=== PATIENT | male | born 1935 | race Caucasian/White ===

== ENCOUNTER 2016-06-07 15:22 | Observation (INO) | payer MEDICARE, OTHER ==
[~2016-06-07] VITALS: Ht 175.3 cm; Wt 80.7 kg
--- NOTE | ~2016-06-07 | CON ---
PATIENT'S NAME: KAMILAH JACKSON [facility] AGE: 80 Y [address] ROOM: [facility] [place], [place] [address] LOCATION: T ADMIT DATE: 06/07/2016 Consultation DISCHARGE DATE: FAMILY PHYSICIAN: Kevin Jhaveri MD ATTENDING PHYSICIAN: ADILENE RAMIREZ DATE OF CONSULTATION: 06/07/2016 REFERRING PHYSICIAN: KARLA NUNN MD DATE AND TIME: 06/07/2016 at 3 p.m. REASON FOR CONSULTATION: Stroke alert. HISTORY OF PRESENT ILLNESS: This is an 80-year-old male, who lives at [facility] due to advanced dementia. He had been in the hospital on May 10 and had a total hip surgery on the left done by Dr. Muhammad. He was ambulating down the hallway with his walker and left knee brace on. He had a gait belt on and was in the company of caregivers. His daughter was at the scene and witnessed the event. Apparently, he started flailing his arms and the caregiver lowered him to the floor. He became unresponsive. There was no focal weakness, but the patient was unable to follow commands. EMS was notified and the patient was brought into the ED as a stroke alert. Upon arrival, the patient's eyes are closed and he resists opening of the eyes. His pupils were 4 mm and brisk and he had very strong hand grasp bilaterally. He was not following any commands. He was taken expediently to the CT, which ruled out bleed. TPA was considered in this patient, however, was not given based on the inability to identify any focal stroke symptoms, the inability to fully ascertain aphasia versus dementia, the recent hip surgery, and the fact that the patient does have advanced dementia. CTA was also done to rule out any large vessel occlusion, which it did. So now we are faced with figuring out what happened to this patient. Labs were drawn in the emergency room and the patient will be admitted to the floor for observation. Presumptive diagnosis is encephalopathy. PRIOR MEDICAL HISTORY: Depression, degenerative joint disease, benign prostatic hypertrophy, GERD, hypothyroidism, hyperlipidemia, unspecified dementia, anxiety disorder, essential hypertension, and chronic atrial fibrillation. Of note, the patient is not on any anticoagulation and has not been for about 5 years, other than he was on Xarelto for 2 weeks post his hip surgery. PAST SURGICAL HISTORY: Surgeries include his hip surgery in April 2016. The patient has also had stents to the RCA in 2003 and a stent to the LAD in 2006. He had an PATIENT'S NAME: KAMILAH JACKSON [facility] AGE: 80 Y [address] ROOM: [id number] [place], [place] [address] LOCATION: [facility] ADMIT DATE: 06/07/2016 Consultation DISCHARGE DATE: FAMILY PHYSICIAN: Kevin Jhaveri MD ATTENDING PHYSICIAN: ADILENE RAMIREZ appendectomy, right inguinal hernia repair, and a right total hip replacement in 2000. MEDICATIONS: His medications are received from the transferring facility. They do not include any anticoagulation. He is on aspirin 325 mg. Of note, he is on gabapentin, Namenda, and Ultram. ALLERGIES: NONE. FAMILY HISTORY: Significant for coronary artery disease in his brother at age 40, in his mother at age 70, in his father at age 60. One brother did have cancer and one brother had hypertension. His father had diabetes. SOCIAL HISTORY: The patient is . His is present. He currently lives in Alzheimer's assisted living unit. His states he has had no tobacco or alcohol use. He has a good appetite in general. REVIEW OF SYSTEMS: Unable to be obtained due to the patient's unresponsive state. The family does volunteer that he has significant arthritis and significant arthritis pain. PHYSICAL EXAMINATION: GENERAL: The patient is sitting there with his eyes closed. He is nonverbal at this time. He is not following any commands. VITAL SIGNS: Blood pressure 142/67, heart rate 69 and regular, afebrile, and his oxygen saturations are 96%. HEENT: His pupils are reactive. His extraocular muscles are intact. NECK: Supple without JVD, bruits, lymphadenopathy, or thyromegaly. LUNGS: Clear to auscultation. CARDIOVASCULAR: Regular without murmur, rub, or gallop. His extremities show no pitting. Distal pulses are present. NEUROLOGIC: He is moving his upper extremities, although not to command. His hand grasps are very strong bilaterally. He is not following any commands and when I try to look at his pupils, he tries to resist that. His NIH stroke scale is difficult to do because of the patient's lack of participation. It is difficult to tell as the patient is truly aphasic or is this is an exacerbation of his dementia. LABORATORY VALUES AND DIAGNOSTICS: His CT shows severe brain atrophy without intracranial hemorrhage, no PATIENT'S NAME: KAMILAH JACKSON [facility] AGE: 80 Y [address] ROOM: [id number] [place], [place] [address] LOCATION: [facility] ADMIT DATE: 06/07/2016 Consultation DISCHARGE DATE: FAMILY PHYSICIAN: Kevin Jhaveri MD ATTENDING PHYSICIAN: ADILENE RAMIREZ suspicious areas to suggest acute infarct. The extracranial CTA of carotids and vertebral basilar system also shows the common carotids normal on both sides with some tortuosity. The carotid bifurcations show approximately 50% focal narrowing at the base of the right carotid bulb and 25% at the left bulb. The internal carotids are normal on both sides. Vertebrals are symmetric with the left side slightly dominant, normal basilar artery. Negative head CTA and negative neck CTA. Laboratory values of note are as TSH 11.1. We did do a prolactin, which was 57.0. Of note, he is supposed to be on aspirin 325, although his salicylate level was less than 2.8, which is less in the linearity of the device measuring the level. ASSESSMENT AND PLAN: Acute encephalopathy. Difficult to ascertain if this was a seizure versus stroke versus other cause of encephalopathy. We will admit for observation status and monitor. The patient's mental status is already improved somewhat and he is following commands and opening his eyes at the time of this dictation. Definitely, we will follow with serial neurologic exams and offer more information as his condition warrants. The family was at the bedside and the plan of care was discussed with them. Plan of care was developed in conjunction with Dr. Nunn. We would like to thank you for the opportunity to take part in this patient's care. Thank you Dr. Blum for your excellent care in the emergency room. WHIT ARNDT APRN FOR KARLA NUNN MD PP/modl /[id number] d: 06/08/16 0123 t: 06/13/16 1411, CONSULTATION REPORT
--- NOTE | ~2016-06-07 | DS ---
PATIENT'S NAME: KAMILAH JACKSON [facility] AGE: 80 Y [address] ROOM: [address] [place], [place] [address] LOCATION: TU ADMIT DATE: 06/07/2016 Discharge Summary DISCHARGE DATE: 06/09/2016 FAMILY PHYSICIAN: Kevin Jhaveri MD ATTENDING PHYSICIAN: Angelo Dickerson FINAL DIAGNOSES: 1. Acute encephalopathy with question of possible seizure activity. 2. Advanced dementia. 3. Essential hypertension. 4. Recent left total hip arthroplasty. HISTORY OF PRESENT ILLNESS: For details of admission, please see Dr. Dickerson's dictated history and physical, but in short, the patient was walking earlier the day and he lost consciousness. There was some question of whether he had convulsions. LABORATORY DATA: On admission, sodium was 141, potassium 4.2, chloride 105, CO2 of 21, BUN 18, creatinine 1.5. On 2nd hospital day, his creatinine was down to 1.2. White blood cell count was 6.8, hemoglobin 12.5, hematocrit 40, MCV 100.8, platelet count 240 with a normal differential. Pro-time 11.3, INR 1.1. No urinalysis. RADIOGRAPHIC STUDIES: Chest x-ray on admission was negative for any acute infection, did not show any evidence of passive congestion. X-ray of his left hip because of the fall did not show any acute fracture. His prostheses were in place. CTA of the head and neck did not show any significant abnormality. He had 50% narrowing at the origin of the right internal carotid bulb. HOSPITAL COURSE: The patient was admitted with a question of a possible seizure. He definitely had acute mental status changes. He was prophylactically placed on IV Keppra and given medication for pain. Initially, the Ultram was held because there were concerned whether this may be contributing to the seizure activity. Dr. Nunn did see him from a neurologic standpoint. The risk for Ultram induced seizures was after a year. There was some thought of stopping the Ultram completely. The decision was made not to do this because of the patient's advanced dementia and the fact that he did Ultram for years for pain and it did not tend to cause aggressive behaviors. He was restarted on the Ultram. An EEG was done, which did not show any evidence of seizure activity. It was felt that it would probably be a good idea to empirically place him on Keppra for a short period of time. This was discussed with the patient's and she did concur. It was felt that the patient was stable to return to [facility] on June 09. Discharge instructions to return with Home Health, so he can get outpatient therapy. MEDICATIONS: PATIENT'S NAME: KAMILAH JACKSON [facility] AGE: 80 Y [address] ROOM: [place] [address] LOCATION: TU ADMIT DATE: 06/07/2016 Discharge Summary DISCHARGE DATE: 06/09/2016 FAMILY PHYSICIAN: Kevin Jhaveri MD ATTENDING PHYSICIAN: Angelo Dickerson 1. Norvasc 5 mg daily. 2. Aspirin 325 mg daily. 3. Lipitor 40 mg daily. 4. Vitamin D 4000 units daily. 5. Multivitamin daily. 6. Exelon 13.3 patch on daily. 7. Namenda 28 mg daily. 8. Colace 200 mg daily. 9. Dutasteride capsule 0.5 mg daily. 10. Neurontin 200 mg every 6 hours as needed for agitation, Neurontin 200 mg 4 times daily. 11. Levothyroxine 112 mcg daily. 12. Protonix 40 mg daily. 13. MiraLAX 17 g twice daily. 14. Zoloft 100 mg daily. 15. Tramadol 100 mg 4 times daily as needed for pain. 16. [place] 5/325 1-2 every 4 hours as needed for pain. 17. Flexeril 5-10 mg every 6 hours as needed for muscle spasm. 18. Tylenol 650 mg every 6 hours as needed. 19. Estrogen 1 tablet daily. 20. Nitroglycerin 0.4 mg p.r.n. chest pain. 21. Dulcolax 10 mg suppository one per rectum daily as needed. 22. Amoxicillin 2000 mg 1 time 1 hour prior to dental procedures. 23. Keppra 500 mg twice daily. At the time of discharge, the patient was stable to return. Followup appointment with Dr. Jhaveri as already scheduled. HUBERT BAZZI MD LAW/modl /[id number] CC: MD Jermaine Riddle MD d: 06/10/16 0014 t: 06/22/16 1043, DISCHARGE SUMMARY
--- NOTE | ~2016-06-07 | HP ---
PATIENT'S NAME: KAMILAH JACKSON [facility] AGE: 80 Y [address] ROOM: [place] [address] LOCATION: [facility] ADMIT DATE: 06/07/2016 History & Physical DISCHARGE DATE: FAMILY PHYSICIAN: Kevin Jhaveri MD ATTENDING PHYSICIAN: ADILENE RAMIREZ DATE OF SERVICE: CHIEF COMPLAINT: At this admission is unresponsive. HISTORY OF PRESENT ILLNESS: This is provided entirely by the family as the patient has advanced dementia and currently appears quite obtunded. This is an 80-year-old male, who has had a witnessed episode by his daughter today. Apparently, he was walking with a walker and a tin can feeder and subsequently became weak on one side, developed flailing in both arms and legs, and was helped down to the floor. He lost consciousness and when the paramedics were called, he was still unconscious. He was brought to the emergency room at [facility] thereafter. A workup in the emergency room demonstrated a lactate of 5 and creatinine of 1.5, which is slightly up from baseline. Prolactin of 57 and TSH of 11. Extensive imaging workup was unremarkable. At this point, the patient has been transferred to the neurotrauma unit. He volunteers no complaints, but he is quite altered and alert and oriented x0. As per discussion with his , the patient was "not himself" as of this morning, though he does have fairly advanced dementia at baseline. REVIEW OF SYSTEMS: All systems have been reviewed and are negative aside from pertinent positives mentioned above. PAST MEDICAL HISTORY: This is extracted from the accompanying medical records from the mammary unit as well as from family. He has a history of coronary artery disease, status post stenting. He carries a history of atrial fibrillation, but he is not on any anticoagulation. Also has a history of degenerative joint disease and hypertension. SURGICAL HISTORY: Significant for hernia as well as a recent left total hip arthroplasty. SOCIAL HISTORY: The patient does not have any history of ongoing toxic habits. FAMILY HISTORY: PATIENT'S NAME: KAMILAH JACKSON [facility] AGE: 80 Y [address] ROOM: [place] [address] LOCATION: [facility] ADMIT DATE: 06/07/2016 History & Physical DISCHARGE DATE: FAMILY PHYSICIAN: Kevin Jhaveri MD ATTENDING PHYSICIAN: ADILENE RAMIREZ Reviewed in detail and is noncontributory. CURRENT MEDICATIONS: 1. Acetaminophen. 2. Amlodipine. 3. Aspirin 325. 4. Atorvastatin. 5. Dulcolax. 6. Cholecalciferol. 7. Cyclobenzaprine. 8. Docusate. 9. Dutasteride. 10. Estrogen. 11. Testosterone. 12. Gabapentin. 13. Isabel. 14. Levothyroxine 112. 15. Namenda. 16. Multivitamin. 17. Nitroglycerin as needed. 18. Pantoprazole. 19. MiraLax. 20. Exelon patch. 21. Zoloft. 22. Tramadol. PHYSICAL EXAMINATION: VITAL SIGNS: Temperature 98, pulse of 61, respirations 16, blood pressure 162/78, saturating 95% on room air. GENERAL: He appears as a well-developed, well-nourished, elderly male, in no acute distress. NEUROLOGICAL: Cannot be conducted as the patient is noncooperative. HEENT: Eye exam shows pupils are equal and reactive to light. No nystagmus was observed. ENT: Exam revealed slightly dry mucous membranes. No stridor. LYMPHATIC: Shows no cervical lymphadenopathy. ENDOCRINE: Shows no thyromegaly. LUNGS: Clear to auscultation. HEART: Rate is regular with no appreciable murmurs, gallops, or rubs. GI: Soft, nontender. : No costovertebral angle tenderness. VASCULAR: Reveals 2+ pedal pulses. SKIN: Warm and dry. MUSCULOSKELETAL: Reveals a splint/immobilizer on his left lower extremity. PSYCHIATRIC: Cannot be performed. PATIENT'S NAME: KAMILAH JACKSON [facility] AGE: 80 Y [address] ROOM: [place] [address] LOCATION: [facility] ADMIT DATE: 06/07/2016 History & Physical DISCHARGE DATE: FAMILY PHYSICIAN: Kevin Jhaveri MD ATTENDING PHYSICIAN: ADILENE RAMIREZ LABORATORY DATA: Studies performed in the ER significant for a lactate of 5.0, creatinine of 1.5. Negative troponin or salicylate. TSH is 11, prolactin is 57. Unremarkable CBC, differential, and the urine is still pending. A CT angio shows diffuse cerebral atrophy. Chest x-ray is unremarkable. Hip x-ray shows a well-fixed total left hip arthroplasty and EKG shows sinus rhythm at 73 beats per minute. ASSESSMENT AND PLAN: This is an 80-year-old male, who has been admitted with a most likely epileptic episode. This conclusion is made on the basis of history as well as elevated prolactin and lactate. We will begin the patient on Keppra. We will get an EEG in the morning. We will get a Neurology consultation, which has already been requested. Additional issues to be adressed. 1. Acute kidney injury. The patient does appear dehydrated and we will gently hydrate him. 2. Coronary artery disease. We will continue him on his current regimen. 3. Hypothyroidism. We will increase the dose of his levothyroxine. 4. Dementia. Continue him on his current regimen. 5. Status post left hip arthroplasty. We will continue him on pain control with the exception of Ultram, which can actually decrease the seizure threshold. 6. Deep vein thrombosis prophylaxis will be pharmacologic with Lovenox. 7. Additional management will depend on the clinical course. 8. Goals of care: The patient was DO NOT RESUSCITATE/DO NOT INTUBATE, but the family wants him full code. I informed him that it is probably not in the patient's best interest to undergo resuscitation given his advanced dementia encouraged them to think about their choice. Time dedicated to this patient's encounter is 35 minutes. MD TONY MILLARD/hailey /[id number] D: [id number] T: [id number] HISTORY & PHYSICAL
--- NOTE | ~2016-06-07 | ER ---
PATIENT'S NAME: KAMILAH JACKSON [facility] AGE: 80 Y [address] ROOM: [place] [address] LOCATION: [facility] ADMIT DATE: 06/07/2016 ER/Outpatient Report DISCHARGE DATE: FAMILY PHYSICIAN: Kevin Jhaveri MD ATTENDING PHYSICIAN: ADILENE RAMIREZ CHIEF COMPLAINT: Unresponsive episode. HISTORY OF PRESENT ILLNESS: The patient was at his usual residence in living quarters at [facility], where he is an inpatient for advanced dementia, when he had a syncopal episode associated with shaking and sonorous respirations, and unresponsiveness was persistent. The patient was witnessed to be walking with his walker and recruiting assistant when he began to collapse and was taken slowly to the ground via his gait belt by the assistance. There was some shaking activity associated with that, which is unusual for the patient. Since then, he has been sonorous with his respirations according to EMS, but did begin to have some mumbling speech but no clear speech. Both daughter and state that the patient is normally very appropriate with his words and interactive. They have never seen anything like this before. He recently did have a hip replacement on the left side in April and is supposed to be on daily aspirin for that. He has a history of atrial fibrillation. No other complaints are known at this time. PAST MEDICAL HISTORY: Documented on the record and reviewed by me. SOCIAL HISTORY: Documented on the record and reviewed by me. MEDICATIONS: Documented on the record and reviewed by me. ALLERGIES: DOCUMENTED ON THE RECORD AND REVIEWED BY ME. REVIEW OF SYSTEMS: All systems reviewed and negative except as noted in the HPI. PHYSICAL EXAMINATION: VITAL SIGNS: Blood pressure 134/76, pulse 84, respiratory rate is 22, temperature is 97.5, SpO2 is 97% on 2 L nasal cannula. GENERAL: An age-appropriate male, in no distress. No pain. Resting on the EMS stretcher. NEURO: The patient is mumbling. He is gripping the rails vigorously and requires significant physical disengagement from the stretcher for transfer to PATIENT'S NAME: KAMILAH JACKSON [facility] AGE: 80 Y [address] ROOM: [place] [address] LOCATION: [facility] ADMIT DATE: 06/07/2016 ER/Outpatient Report DISCHARGE DATE: FAMILY PHYSICIAN: Kevin Jhaveri MD ATTENDING PHYSICIAN: ADILENE RAMIREZ the bed. There are no focal deficits, but the patient does not participate with exam at all. He has purposeful movements of all extremities. He is mumbling his speech. He does not open eyes to command. On re-examination, the patient opens eyes to name. He speaks understandable words but still does not follow commands but does have purposeful movements in the bilateral upper and lower extremities. Babinski is downgoing toes bilateral. No other focal deficits are appreciated, though exam is limited. HEENT: Normocephalic, atraumatic. The eyes are 3 mm bilateral, minimally reactive, extraocular movements are grossly intact. Nasopharynx is clear. Oropharynx is clear. NECK: Supple. Trachea is midline. CHEST: Heart is regular rate and rhythm with no murmurs. LUNGS: Grossly clear to auscultation bilateral with no rhonchi, wheezes, or rales. ABDOMEN: Soft, nontender, and nondistended. No rebound or guarding. EXTREMITIES: Warm and well perfused. There are strong pulses in all extremities. There is a brace to the left lower extremity. The skin is grossly intact throughout. LABORATORY DATA AND X-RAYS: Head CT and CT angio of the head and neck are notable for some stenosis of the right carotid of 50%. No other acute findings. No stroke. No hemorrhage. Chest x-ray is unremarkable per my read. Left hip x-rays are unremarkable per my read. Labs: Lactate of 5.0. Sodium is 141, potassium 4.2, chloride 105, CO2 is 21, BUN is 18, creatinine is 1.5, GFR is 45. Salicylates are below threshold. Free T4 is 0.9, TSH is 11.1. Prolactin is 57. WBC 6.8, hemoglobin 12.5, platelets are 240, INR is 1.1. Troponin is undetectable. EKG: Sinus rhythm, ventricular rate of 70 with otherwise normal intervals and left axis deviation. No change compared to prior EKG from 12/21/2015. IMPRESSION: 1. Acute encephalopathy. 2. Possible seizure. 3. Hyperthyroidism. EMERGENCY DEPARTMENT COURSE: The patient was evaluated per stroke alert protocol based on EMS field report. CT with contrast was obtained. After the patient's renal function was obtained, volume resuscitation was initiated. The and daughter expressed desire for full code initially, however, they know the patient would not want to exist in a persistent vegetative state. His presentation may be consistent with seizure. He had improvement in his mental status but not returned to baseline in the emergency department. For those reasons, we will admit him to PATIENT'S NAME: KAMILAH JACKSON [facility] AGE: 80 Y [address] ROOM: [place] [address] LOCATION: [facility] ADMIT DATE: 06/07/2016 ER/Outpatient Report DISCHARGE DATE: FAMILY PHYSICIAN: Kevin Jhaveri MD ATTENDING PHYSICIAN: ADILENE RAMIREZ the hospitalist, Dr. Ramirez, who has accepted for observation. His prolactin and elevated lactate with anion gap would fit with that particular presentation, however, first onset seizure in a gentleman of this age is extremely unlikely. We will admit him for further evaluation and treatment. All questions were answered, and the patient was admitted without further issue. MD TIFFANY REDD/modl /[id number] d: 06/08/167 t: 06/13/16 2352, OUTPATIENT REPORT
--- NOTE | ~2016-06-07 | NDGEN ---
PATIENT'S NAME: KAMILAH DORANTES [facility] AGE: 80 Y [address] ROOM: [address] [address] LOCATION: [facility] ADMIT DATE: 06/07/2016 Neurodiagnostics DISCHARGE DATE: FAMILY PHYSICIAN: Kevin Jhaveri MD ATTENDING PHYSICIAN: ADILENE RAMIREZ PROCEDURE: ELECTROENCEPHALOGRAM DATE OF PROCEDURE: 06/08/2016 TEST: TECH: CLINICAL DIAGNOSIS: TYPE OF STUDY: A 20-lead EEG done on Kamilah Dorantes. INDICATIONS: This 80-year-old male patient with advanced dementia. He had what was thought to be an observed generalized seizure and elevated prolactin. This EEG was to rule out any evidence of epileptiform features in the background rhythm. The patient is on Keppra just started yesterday. FINDINGS: General background rhythm reveals a slow 7-8 hertz pattern which is slightly slow for the patient's age, but may just represent the patient being a bit drowsy or even postictal. I did not appreciate any epileptiform features and certainly no seizures were recorded. IMPRESSION: General background rhythm was a bit slow with the patient's background rhythm between 7-8 hertz. The amplitudes of the background rhythm are normal between 25 and 40 microvolts. There was no unstable epileptiform features such as positive sharp waves and no true seizures were recorded. MD MILO DUTTON/hailey /[id number] dtt: 06/10/16 0751 , KARLA MCWILLIAMS dtd: 06/08/16 1708
[~2016-06-07 15:22] MED LIST: ASPIRIN325 MG PO; ATIVAN 1 MG1 MG PO; CELEXA40 MG PO; CENTRUM COMPLE1 EACH PO; DOC-Q-LACE100 MG PO; DULCOLAX10 MG R; DUTASTERIDE0.5 MG PO; EEMT HS 0.625-1 EACH PO; EXELON1 EAC1 TRANS; GENTAMICIN OPHTH; LEVOTHROID (S100 MCG PO; LEVOTHYROXINE112 MCG PO; LIPITOR40 MG PO; MIRALAX17 GM PO; NAMENDA XR28 MG PO; NAPROSYN500 MG PO; NEURONTIN100 MG PO; NITROSTAT0.4 MG SL; NORCO 5-325 TA1 EACH PO; NORVASC5 MG PO; PROTONIX40 MG PO; TYLENOL325 MG PO; ULTRAM50 MG PO; VITAMIN D-40400 UNIT PO; XARELTO10 MG PO; ZOLOFT100 MG PO
[2016-06-07 16:01] LABS: BASOPHIL % 0.4 %; EOSINOPHIL # 0.4 K/uL (0.0-0.5); EOSINOPHIL % 6.2 %; HEMOGLOBIN 12.5 g/dL (11.0-16.0); IMMATURE GRANULOCYTE % 0.1 %; LYMPHOCYTE # 2.1 K/uL (0.8-4.0); LYMPHOCYTE % 30.9 %; MCH 31.5 pg (27.0-34.0); MCHC 31.3 gm/dL (32.0-36.5); MCV 100.8 fl (83.0-98.0); MONOCYTE # 0.8 K/uL (0.0-1.0); MONOCYTE % 11.4 %; MPV 9.4 fl (9.4-12.4); NEUTROPHIL # (ANC) 3.4 K/uL (1.4-9.0); NRBC % 0 /100WBC (0-0.00); PLATELET COUNT 240 K/uL (150-450); RBC 3.97 M/uL (3.50-5.50); RDW-CV 13.7 % (11.9-14.6); WBC 6.8 K/uL (4.0-11.0)
[2016-06-07 16:07] LABS: INR - (THERAPEUTIC) 1.1 (0.9-1.1); PROTIME 11.3 SECONDS (9.6-11.1); PTT 24 SECONDS (25-32)
[2016-06-07 16:14] LABS: ALBUMIN 2.9 gm/dL (3.5-5.0); ANION GAP 19.2 (10.0-19.0); CALCIUM 8.2 mg/dL (8.5-10.5); CREATININE 1.5 mg/dL (0.6-1.3); PHOSPHORUS 3.1 mg/dL (2.5-4.9); POTASSIUM 4.2 mMol/L (3.7-5.1)
[2016-06-07] MEDS ORDERED: AMOXICILLIN500 MG PO (18:47)
[2016-06-07] MEDS ORDERED: CYCLOBENZAPRINE5 MG PO (18:49)
[2016-06-08 04:24] LABS: ANION GAP 10.6 (10.0-19.0); CALCIUM 8.2 mg/dL (8.5-10.5); CREATININE 1.2 mg/dL (0.6-1.3); POTASSIUM 3.6 mMol/L (3.7-5.1)
[2016-06-09] MEDS ORDERED: KEPPRA500 MG PO ×2 (13:54→15:23)
== END 2016-06-09 16:20 ==
LOC: GMED 15:22 → GNTU 17:48
PROVIDERS: Emergency Medicine; ADMIT Internal Medicine
DX: G93.40 Encephalopathy, unspecified (principal); F03.90 Unspecified dementia, unspecified severity, without behavioral disturbance, psychotic disturbance, mood disturbance, and anxiety; I10 Essential (primary) hypertension; Z96.642 Presence of left artificial hip joint; Z79.899 Other long term (current) drug therapy; Z79.01 Long term (current) use of anticoagulants
CPT/HCPCS: G0378; G0480; G8978; G8979; G8980; J1650; J1953; J7030; J7040; J7050; Q9967